=== PATIENT | male | born 1950 | race Caucasian/White ===

== ENCOUNTER 2017-09-16 15:11 | Emergency (ER) | payer OTHER ==
[2017-09-16] MEDS: LIDOCAINE 2%/EPI (MDV) 20ML INJ INJ (15:36)
[2017-09-16] MEDS: DIPHTH/TET/ACEL PERTUSS (ADULT) 0.5 ML VIAL IM* (16:03)
== END 2017-09-16 16:36 | disposition home or self-care (01) ==
LOC: FTE 15:11
DX: S61.213A Laceration without foreign body of left middle finger without damage to nail, initial encounter (principal); F17.210 Nicotine dependence, cigarettes, uncomplicated; W26.8XXA Contact with other sharp object(s), not elsewhere classified, initial encounter; Y92.9 Unspecified place or not applicable; Z23 Encounter for immunization
CPT/HCPCS: 12001; 90471; 90715; 99283-25